=== PATIENT | female | born 1970 | race Caucasian/White ===

== ENCOUNTER 2018-09-08 11:58 | Observation (INO) ==
[2018-09-08] MEDS ORDERED: 0.9 % Sodium Chloride 1,000 ML IVC ONE (12:54)
[2018-09-08] MEDS ORDERED: *HR* FentaNYL (PF) 100 MCG/2 ML VIAL IVP ONE ×2 (12:54→14:02)
--- NOTE | 2018-09-08 12:57 | Emergency Department Note ---
Disposition Clinical Impression: Diverticulitis of sigmoid colon, Rectal bleeding Abdominal pain Qualifiers: Abdominal location: lower abdomen, unspecified Qualified Code(s): R10.30 - Lower abdominal pain, unspecified Disposition: Admitted As Inpatient Condition: Fair Referrals: Darryl Nunn MD [Primary Care Provider] - Forms: ED Satisfaction Letter, Work/School Release Time of Disposition: 14:08 Abdominal Pain HPI - General Chief Complaint: ED Abdominal Pain Stated Complaint: ABD PAIN AND RECTAL BLEEDING Time Seen by Provider: 09/08/18 12:34 Source: patient, family Mode of arrival: private vehicle Limitations: no limitations Nursing Notes Reviewed: Yes Vital Signs Reviewed: Yes - History of Present Illness Pt Subjective Complaint: abdominal pain, other (Rectal bleeding) Onset (ago): week(s) (Abdominal pain is been going on for 2 weeks and the rectal bleeding started 2 days ago) Consistency: constant, Worsening Location: diffuse Pain Severity: severe Pain Scale: 10 Quality: sharp Radiation: none Migration to: no migration Improves with: nothing Worsens with: nothing Context: other (Patient's abdominal discomfort started 2 weeks ago while she was on a trip to [place]. Several other family members were sick with GI bug at that time as well. Patient spent several days in the hotel room despite being on vacation. Bleeding did not start until 2 days ago though) Associated symptoms: Reports: nausea. Denies: vomiting, fever Treatments prior to arrival: none - Related Data Allergies Allergy/AdvReac Type Severity Reaction Status Date / Time No Known Allergies Allergy Verified 09/08/18 11:59 All systems ED: reviewed and negative except as stated. Constitutional: Denies: fever, chills ENT ED: Denies: ear pain, throat pain, congestion Cardiovascular: Denies: chest pain, palpitations Respiratory: Denies: cough, dyspnea Gastrointestinal: Reports: abdominal pain, nausea, hematochezia. Denies: vomiting Genitourinary: Denies: urgency, dysuria, frequency Musculoskeletal: Denies: back pain Integumentary: Denies: rash Abdominal Pain PMH - Past Medical History Medical history: Reports: cancer, kidney stones Female Surgical History: Reports: cancer surgery, herniorrhaphy, hysterectomy Psychiatric history: Reports: no psych history - Social History Smoking status: Never smoker Alcohol use: Reports: none Drug use: Reports: none Physical Exam - General Limitations: no limitations General appearance: alert, in no apparent distress - Head Head exam: atraumatic, normocephalic, normal inspection - Eye Eye exam: Present: normal appearance, PERRL, EOMI. Absent: scleral icterus, conjunctival injection - ENT ENT exam: normal exam, normal oropharynx, mucous membranes moist, normal external ear exam - Neck Neck exam: Present: normal inspection, full ROM. Absent: meningismus - Chest Chest inspection: Present: normal inspection, symmetric chest wall rise. Absent: tenderness - Respiratory Respiratory exam: Present: normal lung sounds bilaterally. Absent: respiratory distress, wheezes - Cardiovascular Cardiovascular exam: Present: regular rate, normal rhythm, normal heart sounds - Abdominal Exam Abdominal exam: Present: soft, tenderness, normal bowel sounds. Absent: distention, mass Abdominal tenderness: Present: diffuse - Rectal Exam Rectal exam: Present: normal rectal tone, bloody stool. Absent: mass, tenderness - Extremities Exam Extremities exam: Present: normal inspection. Absent: pedal edema - Neurological Exam Neurological exam: Present: alert, oriented X3 - Psychiatric Psychiatric exam: Present: normal affect, normal mood - Skin Skin exam: Present: warm, dry. Absent: rash Course Course Narrative: Patient presents with abdominal pain for 2 weeks and bright red blood per rectum for the past 2 days. Her belly is diffusely tender, particularly down low. Suspicious for colitis given the abdominal discomfort and the watery bloody stool. I will get her meds for symptom relief. We will get a lab workup going. CT of abdomen. Disposition will be based on diagnostic results and reevaluation. - Reevaluation(s) Reevaluation #1: Hemoglobin is good. Rest of lab workup is okay. CT scan shows sigmoid diverticulitis. Whereas normally this would be an outpatient treatment, the patient is having significant pain and I have had a give a couple doses of IV pain medications while she cannot tolerate outpatient management. We will start IV antibiotics and I will arrange to get her admitted. Time: 14:06 - Consultations Consultation #1: Dr. Varela, hospitalist - I discussed the case with the hospitalist. He is accepted patient for admission. Time: 14:58 Vital Signs Temperature 97.3 F L 09/08/18 11:59 Pulse Rate 97 09/08/18 11:59 Respiratory Rate 18 09/08/18 11:59 Blood Pressure 121/90 09/08/18 11:59 O2 Sat by Pulse Oximetry 98 09/08/18 11:59 Temperature 97.3 F L 09/08/18 11:59 Pulse Rate 97 09/08/18 11:59 Respiratory Rate 18 09/08/18 11:59 Blood Pressure 121/90 09/08/18 11:59 O2 Sat by Pulse Oximetry 98 09/08/18 11:59 Oxygen Delivery Oxygen Delivery Room Air Abdominal Pain - Medical Records Medical records reviewed: Yes I reviewed the patient's medical records. - Lab Data Lab results reviewed: Yes I reviewed the patient's lab results. Result diagrams: 09/08/18 13:03 09/08/18 13:03 Lab Results 09/08/18 09/08/18 09/08/18 Range/Units 13:03 13:03 13:03 WBC 12.7 H (4.3-11.1) K/mcL RBC 4.47 (3.82-4.97) M/mcL Hgb 14.4 (11.5-15.4) g/dL Hct 41.2 (35.3-44.9) % MCV 92.2 (83.0-100.0) fL MCH 32.2 (28.0-33.3) pg MCHC 35.0 (31.6-35.5) g/dL RDW 11.9 (11.5-14.5) % Plt Count 322 (140-400) K/mcL MPV 8.7 L (9.4-12.4) fL Immature Gran % 0.4 (0-4) % Seg Neutrophils % 71.5 % Lymphocytes % 18.6 % Monocytes % 7.5 % Eosinophils % 1.5 % Basophils % 0.5 % Neutrophils # 9.1 H (1.6-8.9) K/mcL Lymphocytes # 2.4 (0.6-4.6) K/mcL Monocytes # 1.0 (0.0-1.3) K/mcL Eosinophils # 0.2 (0.0-0.6) K/mcL Basophils # 0.1 (0.0-0.2) K/mcL PT (9.4-12.1) Seconds INR APTT 31.7 (26.0-36.0) Seconds Sodium 138 (136-145) mEq/L Potassium 4.2 (3.5-5.1) mEq/L Chloride 102 (98-107) mEq/L Carbon Dioxide 27 (23-29) mEq/L BUN 12 (6-20) mg/dL Creatinine 0.83 (0.60-1.20) mg/dL Est GFR ( Amer) > 60 (> 60) Est GFR (Non-Af Amer) > 60 (> 60) BUN/Creatinine Ratio 14 (6-26) Glucose 104 (70-105) mg/dL Calculated Osmolality 286 (280-300) Lactic Acid (0.5-2.2) mmol/L Calcium 9.4 (8.6-10.3) mg/dL Total Bilirubin (0.3-1.0) mg/dL Direct Bilirubin (0.0-0.2) mg/dL Indirect Bilirubin (0.0-1.2) mg/dL AST (13-39) Units/L ALT (7-52) Units/L Alkaline Phosphatase (34-104) Units/L Serum Total Protein (6.4-8.9) g/dL Albumin (3.5-5.7) g/dL Globulin (2.4-3.5) g/dL Albumin/Globulin Ratio (1.1-2.2) Stool Occult Blood (Negative) 09/08/18 09/08/18 09/08/18 Range/Units 13:03 13:03 13:03 WBC (4.3-11.1) K/mcL RBC (3.82-4.97) M/mcL Hgb (11.5-15.4) g/dL Hct (35.3-44.9) % MCV (83.0-100.0) fL MCH (28.0-33.3) pg MCHC (31.6-35.5) g/dL RDW (11.5-14.5) % Plt Count (140-400) K/mcL MPV (9.4-12.4) fL Immature Gran % (0-4) % Seg Neutrophils % % Lymphocytes % % Monocytes % % Eosinophils % % Basophils % % Neutrophils # (1.6-8.9) K/mcL Lymphocytes # (0.6-4.6) K/mcL Monocytes # (0.0-1.3) K/mcL Eosinophils # (0.0-0.6) K/mcL Basophils # (0.0-0.2) K/mcL PT 11.5 (9.4-12.1) Seconds INR 1.0 APTT (26.0-36.0) Seconds Sodium (136-145) mEq/L Potassium (3.5-5.1) mEq/L Chloride (98-107) mEq/L Carbon Dioxide (23-29) mEq/L BUN (6-20) mg/dL Creatinine (0.60-1.20) mg/dL Est GFR ( Amer) (> 60) Est GFR (Non-Af Amer) (> 60) BUN/Creatinine Ratio (6-26) Glucose (70-105) mg/dL Calculated Osmolality (280-300) Lactic Acid 1.2 (0.5-2.2) mmol/L Calcium (8.6-10.3) mg/dL Total Bilirubin 0.5 (0.3-1.0) mg/dL Direct Bilirubin 0.1 (0.0-0.2) mg/dL Indirect Bilirubin 0.4 (0.0-1.2) mg/dL AST 18 (13-39) Units/L ALT 23 (7-52) Units/L Alkaline Phosphatase 82 (34-104) Units/L Serum Total Protein 7.6 (6.4-8.9) g/dL Albumin 4.1 (3.5-5.7) g/dL Globulin 3.5 (2.4-3.5) g/dL Albumin/Globulin Ratio 1.2 (1.1-2.2) Stool Occult Blood (Negative) 09/08/18 Range/Units 13:24 WBC (4.3-11.1) K/mcL RBC (3.82-4.97) M/mcL Hgb (11.5-15.4) g/dL Hct (35.3-44.9) % MCV (83.0-100.0) fL MCH (28.0-33.3) pg MCHC (31.6-35.5) g/dL RDW (11.5-14.5) % Plt Count (140-400) K/mcL MPV (9.4-12.4) fL Immature Gran % (0-4) % Seg Neutrophils % % Lymphocytes % % Monocytes % % Eosinophils % % Basophils % % Neutrophils # (1.6-8.9) K/mcL Lymphocytes # (0.6-4.6) K/mcL Monocytes # (0.0-1.3) K/mcL Eosinophils # (0.0-0.6) K/mcL Basophils # (0.0-0.2) K/mcL PT (9.4-12.1) Seconds INR APTT (26.0-36.0) Seconds Sodium (136-145) mEq/L Potassium (3.5-5.1) mEq/L Chloride (98-107) mEq/L Carbon Dioxide (23-29) mEq/L BUN (6-20) mg/dL Creatinine (0.60-1.20) mg/dL Est GFR ( Amer) (> 60) Est GFR (Non-Af Amer) (> 60) BUN/Creatinine Ratio (6-26) Glucose (70-105) mg/dL Calculated Osmolality (280-300) Lactic Acid (0.5-2.2) mmol/L Calcium (8.6-10.3) mg/dL Total Bilirubin (0.3-1.0) mg/dL Direct Bilirubin (0.0-0.2) mg/dL Indirect Bilirubin (0.0-1.2) mg/dL AST (13-39) Units/L ALT (7-52) Units/L Alkaline Phosphatase (34-104) Units/L Serum Total Protein (6.4-8.9) g/dL Albumin (3.5-5.7) g/dL Globulin (2.4-3.5) g/dL Albumin/Globulin Ratio (1.1-2.2) Stool Occult Blood Positive A (Negative) - Radiology Data Radiology results reviewed: Yes I reviewed the patient's radiology results.
[2018-09-08 13:10] LABS: Basophils # 0.1 K/mcL (0.0-0.2); Basophils % 0.5 %; Eosinophils # 0.2 K/mcL (0.0-0.6); Eosinophils % 1.5 %; Hematocrit 41.2 % (35.3-44.9); Hemoglobin 14.4 g/dL (11.5-15.4); Immature Granulocytes % 0.4 % (0-4); Lymphocytes # 2.4 K/mcL (0.6-4.6); Lymphocytes % 18.6 %; Mean Corpuscular Hemoglobin 32.2 pg (28.0-33.3); Mean Corpuscular Volume 92.2 fL (83.0-100.0); Mean Platelet Volume 8.7 fL (9.4-12.4); Monocytes % 7.5 %; Neutrophils # 9.1 K/mcL (1.6-8.9); Platelet Count 322 K/mcL (140-400); Red Blood Count 4.47 M/mcL (3.82-4.97); Red Cell Distribution Width 11.9 % (11.5-14.5); Segmented Neutrophils % 71.5 %
[2018-09-08 13:18] LABS: Prothrombin Time 11.5 Seconds (9.4-12.1)
[2018-09-08 13:27] LABS: BUN/Creatinine Ratio 14 (6-26); Blood Urea Nitrogen 12 mg/dL (6-20); Calcium 9.4 mg/dL (8.6-10.3); Carbon Dioxide 27 mEq/L (23-29); Chloride 102 mEq/L (98-107); Glucose 104 mg/dL (70-105); Osmolality,Calculated 286 (280-300); Potassium 4.2 mEq/L (3.5-5.1); Sodium 138 mEq/L (136-145); eGFR For Non-African Americans > 60 (> 60)
[2018-09-08 13:28] LABS: Albumin 4.1 g/dL (3.5-5.7); Albumin/Globulin Ratio 1.2 (1.1-2.2); Bilirubin,Direct 0.1 mg/dL (0.0-0.2); Bilirubin,Indirect 0.4 mg/dL (0.0-1.2); Bilirubin,Total 0.5 mg/dL (0.3-1.0); Globulin 3.5 g/dL (2.4-3.5); Total Protein 7.6 g/dL (6.4-8.9)
[2018-09-08] MEDS ORDERED: Levofloxacin 750 MG/150 ML 750 MG/150 ML BAG IVPB ONE ×2 (14:51→15:14)
[2018-09-08] MEDS ORDERED: MetroNIDAZOLE 500 MG/100 ML 500 MG/100 ML BAG IVPB ONE (14:51)
[2018-09-08] MEDS ORDERED: Naloxone 0.4 MG/ML INJ IVP PRN (15:14)
[2018-09-08] MEDS ORDERED: Levofloxacin 750 MG/150 ML 750 MG/150 ML BAG IVPB SCH (16:00)
[2018-09-08] MEDS: *HR* OxyCODONE Immed Rel 5 MG TABLET PO PRN ×2 (16:13→20:44)
[2018-09-08] MEDS: 0.9 % Sodium Chloride 1,000 ML IVC SCH (16:15)
[2018-09-08] MEDS: MetroNIDAZOLE 500 MG/100 ML 500 MG/100 ML BAG IVPB SCH (18:46)
[2018-09-08] MEDS: Ondansetron ODT 4 MG TAB.RAPDIS SL PRN ×2 (20:44→20:48)
[2018-09-09] MEDS: 0.9 % Sodium Chloride 1,000 ML IVC SCH (00:24)
[2018-09-09] MEDS: MetroNIDAZOLE 500 MG/100 ML 500 MG/100 ML BAG IVPB SCH ×2 (00:54→09:32)
[2018-09-09] MEDS: *HR* OxyCODONE Immed Rel 5 MG TABLET PO PRN (05:41)
[2018-09-09 11:04] VITALS: BP 118/83
--- NOTE | 2018-09-09 11:05 | Internal Med History&Physical ---
Date of Encounter: 09/09/18 Time of Encounter: 10:45 Assessment and Plan (1) Diverticulitis of sigmoid colon Current visit: Yes Status: Acute She was given IV Levaquin and Flagyl in emergency room. She states she feels improved now and wishes to be discharged home. Internal Medicine - H&P: HPI Chief complaint: Hematochezia, abdominal pain Admitted From: Emergency Dept Plans for Post Hospital Care: Home History of present illness: Ms. Cotter is a 48 year old female who came to emergency room stating she had onset of mid abdominal discomfort on September 06. She began passing bright red blood per rectum the following day. When the pain did not resolve she came to emergency room the evening of September 08. CT scan showed likely uncomplicated sigmoid diverticulitis and she was admitted to [facility] for ongoing care needs. She denies previous similar episodes of pain or bleeding. She has had no unusual travel and has eaten no unusual foods. GI history is negative for known disorders of liver gallbladder or exocrine pancreas otherwise. She has not had EGD or colonoscopy in the past. Past Med Surg Social Fam HX - Past Medical History Medical history: cancer, kidney stones Psychiatric history: no psych history - Past Surgical History Surgical History: breast surgery Additional surgical history: TWO CYSTS REMOVED FROM LEFT BREAST. - Social History Smoking Status: Never smoker Smokeless Tobacco Status: No Alcohol use: none Drug use: none - Family History Father Adopted: No Family Member Ethnicity: Non- Living Status: Hx Family Cardiac Disorders: No Hx Family Respiratory Disorders: No Hx Family Cancer: Yes Hx Family GI Disorders: No Hx Family Genitourinary Disorders: No Hx Family Endocrine Disorder: No Hx Family Musculoskeletal Disorders: No Hx Family Neuromuscular Disorders: No Hx Family Neurologic Disorders: No Hx Family HEENT Disorders: No Hx Family Autoimmune Disorders: No Hx Family Reproductive Disorders: No Hx Family Psychosocial Disorders: No Hx Family Medical Disorders: No Internal Medicine - H&P: Meds Allergy/AdvReac Type Severity Reaction Status Date / Time No Known Allergies Allergy Verified 09/08/18 11:59 All Systems PM: A 10-system review of systems was performed and is negative for pertinent findings except as documented above in the HPI. Review of systems: Gen.: She states her weight has been stable the past few months Cardiovascular: She denies hypertension [place] heart failure angina DVT or pulmonary embolus Respiratory: She is a lifelong nonsmoker and has no known chronic lung disease GI: As per history of present illness : She reports passing kidney stones 2017 without complication. She denies other kidney or bladder disorders. Neurologic: She denies large distribution strokes or seizures. Endocrine: She denies diabetes thyroid disease or hyperlipidemia Hematology/oncology: She reports ovarian cancer 1999 and uterine cancer 2001. She had hysterectomy with BSO which was curative. She reports left breast cancer 2008 with lumpectomy followed by XRT. She believes she is cancer free at this time. She has history of anemia which has resolved. Psychiatric: She denies anxiety depression or other mental health issues [place] skeletal: she denies arthritis gout or other bone joint or muscle disorders. - Constitutional Vitals: Temp Pulse Resp BP Pulse Ox 97.8 F 66 18 104/70 100 09/09/18 07:26 09/09/18 07:26 09/09/18 07:26 09/09/18 07:26 09/09/18 07:26 Exam: Gen.: She is a well-developed well-nourished female resting comfortably in bed who appears in no acute distress HEENT: Head is atraumatic and normocephalic. Eyes: EOMI. There is no scleral icterus. Mouth: Mucosa is moist. Neck: Supple and nontender. There is no thyromegaly or adenopathy noted. Heart: Regular without murmurs gallops or ectopics Lungs: No wheezes or crackles are heard. Abdomen: Bowel sounds are present. There is tenderness to palpation especially in the left lower abdominal area. No masses or guarding are noted. Extremities: There is no cyanosis edema or clubbing noted. Dorsalis pedis and posterior tibial pulses are 1-2 over 2 bilaterally. Neurologic: Mental status: She is talkative and a good historian. Cranial nerves: Smile is symmetric. Forehead wrinkles bilaterally. Tongue protrudes midline. EOMI. Motor: There is no pronator drift. Cerebellar: Finger to nose is intact bilaterally. Skin: Warm and dry Internal Med - H&P Results - Labs CBC & Chem 7: 09/08/18 13:03 09/08/18 13:03 Labs: Short CBC 09/08/18 Range/Units 13:03 WBC 12.7 H (4.3-11.1) K/mcL Hgb 14.4 (11.5-15.4) g/dL Hct 41.2 (35.3-44.9) % Plt Count 322 (140-400) K/mcL Neutrophils # 9.1 H (1.6-8.9) K/mcL BMP 09/08/18 13:03 Sodium 138 Potassium 4.2 Chloride 102 Carbon Dioxide 27 BUN 12 Creatinine 0.83 Glucose 104 Calcium 9.4 Liver Function 09/08/18 Range/Units 13:03 Total Bilirubin 0.5 (0.3-1.0) mg/dL Direct Bilirubin 0.1 (0.0-0.2) mg/dL AST 18 (13-39) Units/L ALT 23 (7-52) Units/L Alkaline Phosphatase 82 (34-104) Units/L Albumin 4.1 (3.5-5.7) g/dL - Impressions ITS Impressions Abdomen/Pelvis CT 09/08/18 12:53 IMPRESSION: Findings compatible with acute uncomplicated sigmoid diverticulitis. No evidence for obstruction, perforation or abscess formation. Mild ascites dependently within the pelvis likely reactive to the sigmoid diverticulitis. D/ / 09/08/2018 13:40:18 Paulo Webb MD / [email or web address] Interpreting Provider: Paulo Webb MD
--- NOTE | 2018-09-09 11:12 | Discharge Summary ---
Date of Encounter: 09/09/18 Time of Encounter: 10:45 - Discharge Diagnosis (1) Diverticulitis of sigmoid colon Priority: Primary Status: Acute Hospital course: Ms. Cotter is a 48 year old female who came to emergency room stating she had onset of mid abdominal discomfort on September 06. She began passing bright red blood per rectum the following day. When the pain did not resolve she came to emergency room the evening of September 08. CT scan showed likely uncomplicated sigmoid diverticulitis and she was admitted to [facility] for ongoing care needs. Initial orders were written by the emergency room physician. I saw her on September 09 and performed the history physical and discharge. When I saw her she stated she had no vomiting and no further hematochezia. Her abdominal pain had lessened. She was tolerating clear liquids satisfactorily. She wished to be discharged home which I felt was reasonable. She will continue with antibiotic and probiotic for 5 additional days. She will follow with her PCP Dr. Darryl Nunn within 1 week. She will advance diet as tolerated at home. She was instructed to avoid NSAIDs and use Tylenol as needed for pain. - Time Spent with Patient Total time spent providing and/or coordinating discharge services: - Discharge Medications Prescriptions: Ciprofloxacin [Cipro] 500 mg PO BID #10 tablet Lactobacillus [Culturelle] 1 each PO BID #10 cap.sprink metroNIDAZOLE [Flagyl] 500 mg PO TID #15 tablet Home Medications: Ciprofloxacin [Cipro] 500 mg PO BID #10 tablet 09/09/18 [Rx] Lactobacillus [Culturelle] 1 each PO BID #10 cap.sprink 09/09/18 [Rx] metroNIDAZOLE [Flagyl] 500 mg PO TID #15 tablet 09/09/18 [Rx] Allergies/Adverse Reactions: Allergy/AdvReac Type Severity Reaction Status Date / Time No Known Allergies Allergy Verified 09/08/18 11:59 Date of admission: 09/08/18 15:04 Primary care physician: Darryl Nunn MD - Constitutional Vitals: Temp Pulse Resp BP Pulse Ox 97.8 F 73 18 118/83 100 09/09/18 11:03 09/09/18 11:03 09/09/18 11:03 09/09/18 11:03 09/09/18 11:03 - Patient Status Disposition: Home, Self-Care Condition: Good - Discharge Instructions Follow Up With: Darryl Nunn MD [Primary Care Provider] - 1 week - Diet and Activity Activity: resume usual activities as tolerated Diet: advance to your usual diet
== END 2018-09-09 14:30 | disposition home or self-care (01) ==
LOC: EMEROOPIK 11:58 → INPPIK 11:58
PROVIDERS: ADMIT Internal Medicine; ATTEND Internal Medicine